=== PATIENT | female | born 1990 | race American Indian/Alaskan Native ===

== ENCOUNTER 2017-01-04 18:15 | Emergency (ER) | payer SELFPAY ==
[~2017-01-04] VITALS: Ht 172.7 cm; Wt 76.5 kg
[2017-01-04 18:16] VITALS: BP 118/77
== END 2017-01-04 20:36 | disposition home or self-care (01) ==
LOC: ED 19:15
DX: S93.401A Sprain of unspecified ligament of right ankle, initial encounter (principal); X58.XXXA Exposure to other specified factors, initial encounter; Y93.89 Activity, other specified; Y92.328 Other athletic field as the place of occurrence of the external cause; Y99.9 Unspecified external cause status
CPT/HCPCS: 29515; 99284